=== PATIENT | male | born 1950 ===

== ENCOUNTER → 2016-11-17 | Day surgery (SDC) | payer OTHER ==
[2016-10-24 08:35] VITALS: Ht 165.1 cm; Wt 86.4 kg
[~2016-11-17] VITALS: Ht 165.1 cm; Wt 86.4 kg
[~2016-11-17] MED LIST: AMLO10TA4 PO; ATOR-22 PO; AZAT50TA25 PO; DIAPLEX PO; GABA1CAP PO; INSDGI SC; INSU1INJ2 SC; IOPAMIDOL INJ 61% 15 ML VIAL ONE; LIDOCAINE HCL 1% MPF 5 ML VIAL ONE; LISI-725 PO; METF-384 PO; OMEP20TA74 PO; PANT40TA PO; SODIUM CHLORIDE 0.9% INJ 10 ML VIAL ONE; TRAM-10 PO; VNTHFA/IN INH; [UNRECOGNIZED DRUG - CODE] PO; [UNRECOGNIZED DRUG - OTHER] PO; [UNRECOGNIZED DRUG - OTHER] PO; [UNRECOGNIZED DRUG - OTHER] PO; [UNRECOGNIZED DRUG - OTHER] PO
--- NOTE | 2016-11-17 13:51 | History & Physical Bridge - [place] ---
H&P Re-Evaluation Bridge Note: I have examined the patient, reviewed the History & Physical and in the interval since the performance of the History & Physical I have noted the following changes of clinical significance: No changes noted
[2016-11-17 14:20] VITALS: TEMP 36.6
--- NOTE | 2016-11-17 14:22 | Discharge Instructions ---
Discharge Instructions Date of Service Nov 17, 2016. Visit Reason for Visit: Lumbar Radiculopathy Discharge Discharge Diagnosis / Problem: left leg pain Discharge Goals Goal(s): Decrease discomfort, Improve function Medications Stopped Medications Name(s): no advil aspirin or motrin Activity Recommendations Activity Limitations: resume your previous activity Anesthesia . Post Anesthesia Instructions: If you have had General Anesthesia or IV Sedation: * Do not drive today. * Resume driving when surgeon permits. * Do not make important decisions or sign legal documents today. * Call surgeon for: 1. Temperature elevations greater than 101 degrees F. 2. Uncontrollable pain. 3. Excessive bleeding. 4. Persistent nausea and vomiting. 5. Medication intolerance (nausea, vomiting or rash). * For nausea and vomiting use only clear liquids such as: tea, soda, bouillon until nausea subsides, then gradually increase diet as tolerated. * If you have any concerns or questions, call your surgeon's office. If physician is unavailable and it is an emergency, call 911 or go to the nearest emergency room. . Diet Recommendations Recommended Home Diet: resume previous diet Procedures Procedures Performed: Lumbar Epidural Steroid Injection Pending Studies Studies pending at discharge: no Medical Emergencies . Who to Call and When: Medical Emergencies: If at any time you feel your situation is an emergency, please call 911 immediately. . Non-Emergent Contact Non-Emergency issues call your: Specialist . . "Provider Documentation" section prepared by Amilcar Ley. .
[2016-11-17 14:29] VITALS: BP 162/82; PULSE 51; O2SAT 97
--- NOTE | 2016-11-17 14:56 | OPERATIVE REPORT ---
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 PROCEDURE: Left paramedian L4-L5 interlaminar epidural steroid injection under fluoroscopic guidance. INDICATIONS: The patient is a 66-year-old white male who injured himself while throwing a bag of garbage. He describes the pain that radiates down the left leg in a classic L4 dermatomal distribution. It has not gotten better with conservative treatment including physical therapy and a TENS unit. He presents today for an epidural injection to provide him with relief of radicular pain. PHYSICAL EXAMINATION: Pleasant male seated comfortably. He had some mild limitations with forward flexion. He has sensitivity to light touch on the left sciatic notch. He had no focal weakness and he had decreased subjective sensation in the L4 dermatomal distribution. CONSENT: Verbal and written consent was obtained from the patient. Risks and benefits were reviewed. Risks include, but are not limited to epidural abscess, epidural hematoma, allergic reaction, and dural puncture. The patient wishes to proceed. DESCRIPTION OF PROCEDURE: The patient was taken back into the special procedures room of the [facility], where he was maintained in a prone position. Backside was cleansed with Betadine x3 and a dry sterile dressing was applied. Fluoroscope was used to identify the L4-L5 interlaminar space and overlying skin on the left side was anesthetized with 4 mL of lidocaine 1% with a 25-gauge 1-1/2 inch needle. A 22-gauge 3-1/2 inch spinal needle was then driven down to the intralaminar space to a depth of 8 cm. Isovue-300 contrast 1 mL was injected in which demonstrated epidural uptake pattern, which was confirmed with a lateral view. He then underwent injection after negative aspiration of 40 mg of Depo-Medrol and 4 mL of bupivacaine 0.25%. Injection was well tolerated. DISPOSITION: 1. The patient was taken out into the discharge recovery area, where he will be discharged home once discharge criteria have been met. 2. Follow up in the [facility] office in 2-4 weeks. I attest to the content of the Intraoperative Record and any orders documented therein. Any exception s are noted below.
== END | disposition home or self-care (01) ==
LOC: X.SURG 12:14
PROVIDERS: ATTEND Physical Medicine & Rehabilitation
DX: M48.06 Spinal stenosis, lumbar region (principal); M54.16 Radiculopathy, lumbar region; I10 Essential (primary) hypertension; E11.9 Type 2 diabetes mellitus without complications; Z79.4 Long term (current) use of insulin; Z82.49 Family history of ischemic heart disease and other diseases of the circulatory system; Z83.3 Family history of diabetes mellitus